=== PATIENT | female | born 1975 | race African-American/Black ===

== ENCOUNTER 2017-05-11 05:15 | Inpatient (IN) | payer OTHER ==
[2017-05-11] VITALS (7 sets, daily range): BP systolic 102–108; BP diastolic 65–78; PULSE 78–101; RESP 16–22; TEMP 97.2–99.4; O2SAT 97–100
[~2017-05-11] VITALS: Ht 147.3 cm; Wt 68.3 kg
[2017-05-11] MEDS ORDERED: ONDANSETRON HCL 4 MG/2 ML VIAL ONE (05:22)
[2017-05-11 05:36] LABS: AUTOMATED NEUTROPHIL # 3.5 TH/MM3 (1.8-7.7); BASOPHIL % 0.7 % (0.0-2.0); EOSINOPHIL % 0.2 % (0.0-4.0); I-STAT SODIUM 151 MMOL/L (138-146); LYMPH % 35.1 % (9.0-44.0); LYMPHOCYTE # 2.1 TH/MM3 (1.0-4.8); MEAN CELL VOLUME 96.9 FL (80.0-100.0); MEAN CORPUSCULAR HEMOGLOBIN 31.5 PG (27.0-34.0); MEAN CORPUSCULAR HGB CONC 32.6 % (32.0-36.0); MONO % 6.6 % (0.0-8.0); NEUT % 57.4 % (16.0-70.0); PLATELET COUNT 151 TH/MM3 (150-450); RED BLOOD COUNT 2.09 MIL/MM3 (4.00-5.30); RED CELL DISTRIBUTION WIDTH 13.5 % (11.6-17.2); WHITE BLOOD COUNT 6.1 TH/MM3 (4.0-11.0)
[2017-05-11 05:37] LABS: HEMO FLAGS AUTO DIFF
[2017-05-11 05:39] LABS: HEMATOCRIT 20.2 % (35.0-46.0)
[2017-05-11 05:40] LABS: I-STAT POTASSIUM LESS THAN 2.0 MMOL/L (3.5-4.9)
[2017-05-11] MEDS ORDERED: IOHEXOL 350 MG/ML 10 ML VIAL (for RAD DIAG) IV ONE (05:49)
[2017-05-11] MEDS: SODIUM CHLOR 0.9% 1000 ML INJ 1,000 ML IV SCH ×3 (05:50→19:49)
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
[2017-05-11 06:00] LABS: APTT (PATIENT) 32.4 SEC (24.3-30.1); INTERNATIONAL NORMALIZED RATIO 1.3 RATIO; PROTHROMBIN TIME - PATIENT 14.5 SEC (9.8-11.6)
[2017-05-11] MEDS ORDERED: SODIUM CHLORIDE 0.9% FLUSH 10 ML FLUSH IV FLUSH PRN (06:00)
[2017-05-11] MEDS ORDERED: Post-op Orders (for Pharmacy) MISC XX ONE (06:00)
[2017-05-11] MEDS ORDERED: NALOXONE HCL 0.4 MG/ML AMP IV PRN (06:00)
[2017-05-11] MEDS ORDERED: ONDANSETRON HCL 4 MG/2 ML VIAL IV PRN (06:00)
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
[2017-05-11 06:07] LABS: BETA HCG QUANT LESS THAN 1 MIU/ML (0-5)
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
[2017-05-11] MEDS: MORPHINE SULFATE 4 MG/ML INJ IV PRN ×7 (06:18→21:16)
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
[2017-05-11 07:05] LABS: PLATELET ESTIMATE SMEAR NORMAL (NORMAL); PLATELET MORPHOLOGY NORMAL (NORMAL); SCAN/DIFF AUTO DIFF CONFIRMED
[2017-05-11] MEDS: SODIUM CHLORIDE 0.9% FLUSH 10 ML FLUSH IV FLUSH SCH ×2 (08:00→19:48)
[2017-05-11] MEDS: PANTOPRAZOLE SOD 40 MG DELAYED RELEASE TAB PO SCH (09:20)
[2017-05-11] MEDS: oxyCODONE/ACETAMINOPHEN 5 MG/325 MG TAB PO PRN ×4 (09:59→23:46)
[2017-05-11] MEDS: DOCUSATE SODIUM 50 MG/SENNA 8.6 MG TAB PO SCH ×2 (11:15→19:48)
[2017-05-11 12:38] LABS: HEMATOCRIT 40.6 % (35.0-46.0); REVIEW FLAG FINAL
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
[2017-05-11] MEDS: MAGNESIUM HYDROXIDE SUSP 30 ML CUP PO SCH (19:48)
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
[2017-05-11] MEDS ORDERED: BACITRACIN TOP OINT 15 GM TUBE TOPICAL PRN (23:15)
[2017-05-12] MEDS: MORPHINE SULFATE 4 MG/ML INJ IV PRN ×8 (00:43→23:49)
[2017-05-12] MEDS: oxyCODONE/ACETAMINOPHEN 5 MG/325 MG TAB PO PRN ×5 (03:51→22:16)
[2017-05-12 04:08] VITALS: BP 111/64; PULSE 90; RESP 16; TEMP 97.8; O2SAT 97
[2017-05-12 05:07] LABS: AMPHETAMINE, URINE NEG (NEG); BARBITURATES, URINE NEG (NEG); COCAINE, URINE NEG (NEG)
[2017-05-12 05:19] LABS: BACTERIA, URINE RARE /hpf; BLOOD, URINE SMALL (NEG); COMMENT (UR) CATH-CULTURE IND; CULTURE IF INDICATED CATH CULTURE IND; GLUCOSE,URINE NEG (NEG); KETONE, URINE NEG (NEG); MUCUS URINE FEW /lpf (OCC); NITRITE,URINE NEG (NEG); SQUAMOUS EPITHELIAL CELL URINE <1 /hpf (0-5); URINE COLOR LIGHT-YELLOW (YELLW/STRAW)
[2017-05-12 06:21] LABS: AUTOMATED NEUTROPHIL # 6.5 TH/MM3 (1.8-7.7); BASOPHIL % 0.2 % (0.0-2.0); EOSINOPHIL # 0.1 TH/MM3 (0-0.4); EOSINOPHIL % 0.5 % (0.0-4.0); HEMATOCRIT 34.1 % (35.0-46.0); MEAN CORPUSCULAR HEMOGLOBIN 31.2 PG (27.0-34.0); MEAN CORPUSCULAR HGB CONC 34.2 % (32.0-36.0); MONO % 10.3 % (0.0-8.0); PLATELET COUNT 165 TH/MM3 (150-450); RED BLOOD COUNT 3.75 MIL/MM3 (4.00-5.30); RED CELL DISTRIBUTION WIDTH 15.9 % (11.6-17.2); WHITE BLOOD COUNT 9.6 TH/MM3 (4.0-11.0)
[2017-05-12 06:23] LABS: HEMO FLAGS AUTO DIFF
[2017-05-12 07:03] LABS: BICARBONATE 24.8 MEQ/L (21.0-32.0); CALCIUM-PROTEIN CORRECTED 7.9 MG/DL (8.5-10.1); MAGNESIUM 1.8 MG/DL (1.5-2.5); POTASSIUM 3.8 MEQ/L (3.5-5.1); TOTAL BILIRUBIN ADULT 0.6 MG/DL (0.2-1.0)
[2017-05-12] MEDS: PANTOPRAZOLE SOD 40 MG DELAYED RELEASE TAB PO SCH (07:52)
[2017-05-12] MEDS: DOCUSATE SODIUM 50 MG/SENNA 8.6 MG TAB PO SCH ×2 (07:52→21:22)
[2017-05-12] MEDS: LACTULOSE SYRUP 20 GM/30 ML CUP PO SCH (07:53)
[2017-05-12] MEDS: SODIUM CHLORIDE 0.9% FLUSH 10 ML FLUSH IV FLUSH SCH ×2 (07:56→21:30)
[2017-05-12] MEDS: SODIUM CHLOR 0.9% 1000 ML INJ 1,000 ML IV SCH ×2 (07:57→21:50)
[2017-05-12 08:00] VITALS: BP 109/72; PULSE 75; RESP 12; TEMP 96.1; O2SAT 98
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
[2017-05-12 09:24] LABS: SCAN/DIFF AUTO DIFF CONFIRMED
[2017-05-12 12:00] VITALS: BP 114/79; PULSE 81; RESP 16; TEMP 97.3; O2SAT 98
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
[2017-05-12] MEDS ORDERED: LIDOCAINE HCL 1% 50 ML VIAL INFIL SCH (14:45)
[2017-05-12] MEDS ORDERED: METOPROLOL TARTRATE 25 MG TAB PO PRN (15:45)
[2017-05-12] MEDS ORDERED: SODIUM CHLORID 0.9% 500 ML IV PRN (15:45)
[2017-05-12] MEDS ORDERED: CHLORHEXIDINE GLUCONATE 2 % 1 PACK (2 CLOTHS) TOPICAL PRN (15:45)
[2017-05-12] MEDS ORDERED: INSULIN HUMAN REGULAR 1,000 UNITS/10 ML VIAL SQ PRN (15:45)
[2017-05-12] MEDS ORDERED: POVIDONE IODINE 5% (ANTISEPSIS KIT) 4 APPLICATIONS EACH NARE PRN (15:45)
[2017-05-12] MEDS ORDERED: LACTATED RINGER'S 1000 ML IV PRN (15:45)
[2017-05-12 16:00] VITALS: BP 121/79; PULSE 82; RESP 16; TEMP 97; O2SAT 100
[2017-05-12 16:30] VITALS: BP 121/79; PULSE 82; RESP 16; TEMP 97; O2SAT 100
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
[2017-05-12] MEDS ORDERED: LIDOCAINE 1%/EPINEPHrine 1:100,000 SOLN 20 ML VIAL ONE (17:46)
[2017-05-12 20:45] VITALS: BP 120/72; PULSE 99; RESP 18; TEMP 97.7; O2SAT 100
[2017-05-12] MEDS: MAGNESIUM HYDROXIDE SUSP 30 ML CUP PO SCH (21:00)
[2017-05-13] VITALS (8 sets, daily range): BP systolic 104–120; BP diastolic 58–75; PULSE 75–93; RESP 16–18; TEMP 96.7–99.3; O2SAT 98–100
[2017-05-13] MEDS: MORPHINE SULFATE 4 MG/ML INJ IV PRN ×5 (01:48→20:10)
[2017-05-13] MEDS: oxyCODONE/ACETAMINOPHEN 5 MG/325 MG TAB PO PRN ×4 (02:35→21:51)
[2017-05-13] MEDS ORDERED: FAMOTIDINE 20 MG/2 ML VIAL ONE (07:17)
[2017-05-13] MEDS ORDERED: HYDROmorphone HCL PF 2 MG/ML VIAL ONE (07:17)
[2017-05-13] MEDS ORDERED: ACETAMINOPHEN 1000 MG/100 ML VIAL IV ONE (07:17)
[2017-05-13] MEDS ORDERED: MIDAZOLAM HCL 2 MG/2 ML VIAL ONE (07:17)
[2017-05-13] MEDS ORDERED: ceFAZolin INJ 1,000 MG VIAL ONE (07:23)
[2017-05-13] MEDS: SODIUM CHLOR 0.9% 1000 ML INJ 1,000 ML IV SCH (07:50)
[2017-05-13] MEDS ORDERED: ceFAZolin INJ 1,000 MG VIAL IV ONE (07:53)
[2017-05-13] MEDS ORDERED: BUPIVACAINE/EPINEPHRINE 0.5% PF 10 ML VIAL INFIL ONE (08:07)
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
[2017-05-13] MEDS ORDERED: SILVER SULFADIAZINE 1% CR 50 GM JAR EXTERNAL ONE (08:45)
[2017-05-13] MEDS: LACTULOSE SYRUP 20 GM/30 ML CUP PO SCH (09:00)
[2017-05-13] MEDS: SILVER SULFADIAZINE 1% CR 50 GM JAR TOP SCH (09:00)
[2017-05-13] MEDS: DOCUSATE SODIUM 50 MG/SENNA 8.6 MG TAB PO SCH ×2 (09:00→20:11)
[2017-05-13] MEDS: PANTOPRAZOLE SOD 40 MG DELAYED RELEASE TAB PO SCH (09:00)
[2017-05-13] MEDS: SODIUM CHLORIDE 0.9% FLUSH 10 ML FLUSH IV FLUSH SCH ×2 (09:00→20:12)
[2017-05-13] MEDS ORDERED: DO NOT ADM ANY ANTICOAGULANT DRUGS PRN (11:00)
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
--- NOTE | 2017-05-13 11:31 | HHI.PR ---
Immediate Post Op Note Procedure Date: May 13, 2017 Pre Op Diagnosis: (1) Laceration of forehead (2) Laceration of arm, left, multiple sites Post Op Diagnosis: Surgeon: Jennifer Jennings MD Assembly Machine Offbearer(s): Carmel Nielsen PA-C Procedure: Debridement of wounds of left upper extremity and left forehead with repair of lacerations. Complications: n/a Specimen(s) removed: n/a Estimated blood loss: 15mL Anesthesia: General Drains: None Tourniquet time (min at mmHg) n/a Patient to: PACU Patient Condition: Good Date/Time of Procedure: SEE SURGICAL CARE RECORD Germania Nielsen May 13, 2017 11:31
[2017-05-13] MEDS ORDERED: LACTATED RINGER'S 1000 ML INJ 1,000 ML IV ONE (12:00)
[2017-05-13] MEDS ORDERED: NEOSTIGMINE 3 MG/3 ML SYR IV ONE (12:00)
[2017-05-13] MEDS ORDERED: ONDANSETRON HCL 4 MG/2 ML VIAL IV PUSH ONE (12:00)
[2017-05-13] MEDS ORDERED: PROPOFOL 200 MG/20 ML AMP IV ONE (12:00)
[2017-05-13 14:38] LABS: AUTOMATED NEUTROPHIL # 7.5 TH/MM3 (1.8-7.7); BASOPHIL % 0.1 % (0.0-2.0); HEMATOCRIT 35.7 % (35.0-46.0); HEMO FLAGS DIFF FINAL; LYMPH % 3.6 % (9.0-44.0); LYMPHOCYTE # 0.3 TH/MM3 (1.0-4.8); MEAN CELL VOLUME 90.7 FL (80.0-100.0); MEAN CORPUSCULAR HEMOGLOBIN 30.6 PG (27.0-34.0); MEAN CORPUSCULAR HGB CONC 33.7 % (32.0-36.0); NEUT % 92.3 % (16.0-70.0); PLATELET COUNT 152 TH/MM3 (150-450); RED BLOOD COUNT 3.93 MIL/MM3 (4.00-5.30); RED CELL DISTRIBUTION WIDTH 15.2 % (11.6-17.2); WHITE BLOOD COUNT 8.1 TH/MM3 (4.0-11.0)
[2017-05-13] MEDS ORDERED: MAGN400S PO (14:49)
[2017-05-13] MEDS ORDERED: WALKER WHEELS/F1 MIS (14:49)
[2017-05-13] MEDS ORDERED: SENN1TAB PO (14:49)
[2017-05-13 15:03] LABS: ANION GAP 6 MEQ/L (5-15); AST (GOT) 45 U/L (15-37); BLOOD UREA NITROGEN 3 MG/DL (7-18); CHLORIDE 109 MEQ/L (98-107); GLOMERULAR FILTRATION RATE 162 ML/MIN (>89); SODIUM (NA) 145 MEQ/L (136-145)
[2017-05-13 15:05] LABS: ALKALINE PHOSPHATASE 59 U/L (45-117); ALT (GPT) 54 U/L (10-53); TOTAL BILIRUBIN ADULT 0.4 MG/DL (0.2-1.0)
[2017-05-13] MEDS: LIDOCAINE HCL 5% PATCH T-DERMAL SCH (15:19)
[2017-05-13] MEDS: KETOROLAC TROMETHAMINE 30 MG/ML (IVP) VIAL IV PUSH SCH ×2 (15:19→23:39)
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
[2017-05-13] MEDS: MAGNESIUM HYDROXIDE SUSP 30 ML CUP PO SCH (20:11)
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
[2017-05-14] VITALS (7 sets, daily range): BP systolic 94–130; BP diastolic 56–83; PULSE 75–98; RESP 15–19; TEMP 98.1–98.8; O2SAT 95–100
[2017-05-14] MEDS: oxyCODONE/ACETAMINOPHEN 5 MG/325 MG TAB PO PRN ×5 (03:45→20:21)
[2017-05-14] MEDS: KETOROLAC TROMETHAMINE 30 MG/ML (IVP) VIAL IV PUSH SCH ×4 (04:52→23:50)
[2017-05-14] MEDS ORDERED: BISACODYL EC 5 MG TABEC PO ONE (08:00)
[2017-05-14] MEDS ORDERED: BISACODYL 10 MG SUPP RECTAL ONE (08:00)
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
[2017-05-14] MEDS: LACTULOSE SYRUP 20 GM/30 ML CUP PO SCH (09:00)
[2017-05-14] MEDS: SILVER SULFADIAZINE 1% CR 50 GM JAR TOP SCH (09:00)
[2017-05-14] MEDS: SODIUM CHLORIDE 0.9% FLUSH 10 ML FLUSH IV FLUSH SCH ×2 (09:00→20:20)
[2017-05-14] MEDS: DOCUSATE SODIUM 50 MG/SENNA 8.6 MG TAB PO SCH ×2 (09:00→20:22)
[2017-05-14] MEDS: LIDOCAINE HCL 5% PATCH T-DERMAL SCH (10:44)
[2017-05-14] MEDS: PANTOPRAZOLE SOD 40 MG DELAYED RELEASE TAB PO SCH (10:45)
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
[2017-05-14] MEDS: MORPHINE SULFATE 4 MG/ML INJ IV PRN ×2 (13:19→22:10)
--- NOTE | 2017-05-14 14:59 | RADRPT ---
EXAM DATE/TIME: 05/14/2017 14:21 [facility] COMPARISON: CT ABDOMEN & PELVIS W CONTRAST, May 11, 2017, 5:46. INDICATIONS : Follow up pelvic fracture. MEDICAL HISTORY : None. SURGICAL HISTORY : None. ENCOUNTER: Subsequent ACUITY: 4 - 6 days PAIN SCORE: 5/10 LOCATION: Left pelvis FINDINGS: There is a mildly displaced fracture through the left pubic bone extending into the superior pubic ra mus as well as the inferior pubic ramus. There is also a relatively nondisplaced left sacral bone fra cture. CONCLUSION: 1. Mildly displaced fractures of the left pubic bone and superior pubic ramus, inferior pubic ramus a nd left sacral bone. Davide Valladares MD on May 14, 2017 at 14:55 Board Certified Radiologist. This report was verified electronically.
[2017-05-14] MEDS: ENOXAPARIN SODIUM 30 MG/0.3 ML SYRINGE SQ SCH (15:47)
[2017-05-14] MEDS ORDERED: XARE10TA PO (16:18)
[2017-05-14] MEDS: MAGNESIUM HYDROXIDE SUSP 30 ML CUP PO SCH (20:23)
[2017-05-15] VITALS (7 sets, daily range): BP systolic 105–124; BP diastolic 57–71; PULSE 78–100; RESP 15–22; TEMP 96.9–99; O2SAT 95–100
[2017-05-15] MEDS: MORPHINE SULFATE 4 MG/ML INJ IV PRN ×2 (03:55→08:54)
[2017-05-15] MEDS: ENOXAPARIN SODIUM 30 MG/0.3 ML SYRINGE SQ SCH ×2 (03:56→15:00)
[2017-05-15] MEDS: KETOROLAC TROMETHAMINE 30 MG/ML (IVP) VIAL IV PUSH SCH ×3 (06:14→17:28)
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
[2017-05-15] MEDS ORDERED: MAGNESIUM CITRATE SOLN 300 ML BTL PO ONE (08:30)
[2017-05-15] MEDS: LIDOCAINE HCL 5% PATCH T-DERMAL SCH (08:53)
[2017-05-15] MEDS: SODIUM CHLORIDE 0.9% FLUSH 10 ML FLUSH IV FLUSH SCH ×2 (09:00→21:39)
[2017-05-15] MEDS: PANTOPRAZOLE SOD 40 MG DELAYED RELEASE TAB PO SCH (09:00)
[2017-05-15] MEDS: DOCUSATE SODIUM 50 MG/SENNA 8.6 MG TAB PO SCH ×2 (09:00→21:39)
[2017-05-15] MEDS: LACTULOSE SYRUP 20 GM/30 ML CUP PO SCH (09:00)
[2017-05-15] MEDS: SILVER SULFADIAZINE 1% CR 50 GM JAR TOP SCH (09:10)
--- NOTE | 2017-05-15 09:57 | PD.PLAS.PN ---
Subjective Remarks Patient is 2 days status post debridement and repair of wounds of the left arm and forehead. DOS 05/12/17. Patient states that she is feeling better today and that her forehead looks good. Objective Vital Signs Date Time Temp Pulse Resp B/P Pulse Ox O2 Delivery O2 Flow Rate FiO2 05/15/17 08:07 98.6 80 20 108/64 100 05/15/17 07:14 18 05/15/17 04:12 18 05/15/17 04:00 98.0 90 16 105/63 98 05/15/17 00:31 96.9 78 15 124/71 100 05/15/17 00:00 Room Air 05/14/17 21:43 18 05/14/17 20:54 98 Nasal Cannula 1.00 05/14/17 19:00 98.1 98 15 94/56 98 05/14/17 16:00 98.1 75 18 117/77 99 05/14/17 13:21 95 1.00 05/14/17 12:00 98.4 83 18 121/83 100 I/O 05/14/17 05/14/17 05/14/17 05/15/17 05/15/17 05/15/17 07:00 15:00 23:00 07:00 15:00 23:00 Intake Total 250 ml 650 ml 480 ml 300 ml Output Total 350 ml Balance -100 ml 650 ml 480 ml 300 ml Intake Oral 250 ml 650 ml 480 ml 300 ml Output Urine Total 350 ml # Voids 3 3 1 # Bowel Movements 0 0 0 0 Date/Time Procedure Status Source Growth 05/12/17 04:00 Urine Culture - Final Complete Urine Catheterized Urine NO GROWTH IN 48 HOURS. Result Diagram: 05/13/17 1428 05/13/17 1428 Exam Findings Wound of the forehead is healing well. Sutures are in place. There is no oozing, erythema, swelling, induration or other indication of infection. Dressing is in place to the left arm. Wounds are healing well. Swelling is improved. There is no evidence of infection. Sutures are in place. Assessment and Plan Diagnosis: (1) Laceration of arm, left, multiple sites (2) Laceration of forehead Assessment and Plan Wounds are healing well. Daily dressing changes are ordered for the left arm and discussed with RN. Patient is advised that we will continue with wound care and further surgery for skin grafting may be required. Also discussed wound care for forehead wound including application of povidone iodine ointment daily. She is cleared for discharge from hand surgery standpoint with dressing changes and follow up in office. Germania Nielsen May 15, 2017 09:56
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
[2017-05-15] MEDS: oxyCODONE/ACETAMINOPHEN 5 MG/325 MG TAB PO PRN (12:47)
[2017-05-15] MEDS: POVIDONE IODINE 10% OINT 30 GM TUBE TOPICAL SCH (13:00)
[2017-05-15] MEDS ORDERED: LIDO5DIS5 T-DERMAL (13:46)
[2017-05-15] MEDS ORDERED: ENOX30P SQ (13:46)
[2017-05-15] MEDS ORDERED: PANT40TA3 PO (13:46)
[2017-05-15] MEDS ORDERED: KETO30IN3 IV PUSH (15:11)
[2017-05-15] MEDS ORDERED: OXYC1TAB63 PO (15:11)
[2017-05-15] MEDS ORDERED: POVI10OI TOPICAL (15:17)
[2017-05-15] MEDS ORDERED: SSD1CRE TOP (15:17)
[2017-05-15] MEDS: oxyCODONE/ACETAMINOPHEN 10 MG/325 MG TAB PO PRN ×2 (17:27→22:56)
[2017-05-15] MEDS: MAGNESIUM HYDROXIDE SUSP 30 ML CUP PO SCH (21:00)
[2017-05-16] VITALS: BP 118/69; PULSE 72; RESP 24; TEMP 97; O2SAT 99
[2017-05-16] MEDS: KETOROLAC TROMETHAMINE 30 MG/ML (IVP) VIAL IV PUSH SCH ×3 (01:44→11:16)
[2017-05-16] MEDS: ENOXAPARIN SODIUM 30 MG/0.3 ML SYRINGE SQ SCH (03:57)
[2017-05-16] MEDS: oxyCODONE/ACETAMINOPHEN 10 MG/325 MG TAB PO PRN ×3 (03:58→12:36)
[2017-05-16 04:00] VITALS: BP 121/72; PULSE 78; RESP 18; TEMP 96.6; O2SAT 100
[2017-05-16 08:00] VITALS: BP 110/75; PULSE 78; RESP 16; TEMP 98; O2SAT 98
[2017-05-16] MEDS: LIDOCAINE HCL 5% PATCH T-DERMAL SCH (08:48)
[2017-05-16] MEDS: SILVER SULFADIAZINE 1% CR 50 GM JAR TOP SCH (08:49)
[2017-05-16] MEDS: LACTULOSE SYRUP 20 GM/30 ML CUP PO SCH ×2 (08:49→11:15)
[2017-05-16] MEDS: DOCUSATE SODIUM 50 MG/SENNA 8.6 MG TAB PO SCH ×2 (08:49→11:14)
[2017-05-16] MEDS: SODIUM CHLORIDE 0.9% FLUSH 10 ML FLUSH IV FLUSH SCH (08:49)
[2017-05-16] MEDS: POVIDONE IODINE 10% OINT 30 GM TUBE TOPICAL SCH (08:50)
[2017-05-16 12:00] VITALS: BP 111/67; PULSE 85; RESP 16; TEMP 98.6; O2SAT 100
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
[2017-05-19] MEDS ORDERED: GETGO ROLLING W1 MI1 (14:22)
[2017-05-19] MEDS ORDERED: COMMODE 3-IN-11 MIS (14:35)
[2017-05-19] MEDS ORDERED: WHEEMIS3 (14:35)
== END 2017-05-16 13:48 | DRG 964 ==
LOC: NEPI 05:15 → MERGE 06:01 → NEDA 06:01 → EDBD 06:01 → N03B 06:08 → N06A 12:33
PROVIDERS: ADMIT Surgery; ATTEND Surgery
PROC: 0HQCXZZ Repair Left Upper Arm Skin, External Approach (ICD-10-PCS; 2017-05-13)
PROC: 0HQ1XZZ Repair Face Skin, External Approach (ICD-10-PCS; principal; 2017-05-13 07:25)
DX: S32.592A Other specified fracture of left pubis, initial encounter for closed fracture (principal); S36.114A Minor laceration of liver, initial encounter; S32.018A Other fracture of first lumbar vertebra, initial encounter for closed fracture; S06.9X9A Unspecified intracranial injury with loss of consciousness of unspecified duration, initial encounter; S32.10XA Unspecified fracture of sacrum, initial encounter for closed fracture; S06.0X9A Concussion with loss of consciousness of unspecified duration, initial encounter; S41.112A Laceration without foreign body of left upper arm, initial encounter; S01.81XA Laceration without foreign body of other part of head, initial encounter; V44.5XXA Car driver injured in collision with heavy transport vehicle or bus in traffic accident, initial encounter; Y92.410 Unspecified street and highway as the place of occurrence of the external cause
CPT/HCPCS: 36430; 70450; 70486; 71010; 71260; 72125; 72128; 72131; 72170; 72190; 73060; 73070; 73560; 74177; 80053; 80307; 81001; 82435; 82565; 82947; 83735; 84100; 84132; 84295; 84520; 84702; 85014; 85018; 85025; 85384; 85610; 85730; 86850; 86900; 86901; 86920; 87086; 87641; 94150; J0131; J0690; J1170; J1650; J1885; J2250; J2270; J2405; J2710; J3010; J7030; J7120; L0150; P9016; Q9967

== ENCOUNTER 2018-01-09 23:42 | Emergency (ER) | payer SELFPAY ==
[~2018-01-09] VITALS: Ht 147.3 cm; Wt 55.0 kg
[~2018-01-09 23:42] MED LIST: COMMODE 3-IN-11 MIS; CYCL10TA PO; GETGO ROLLING W1 MI1; PANT40TA3 PO; SENN1TAB PO; SSD1CRE TOPICAL; TRAM50TA PO; WALKER WHEELS/F1 MIS; WHEEMIS3
[2018-01-09 23:50] VITALS: BP 111/77; PULSE 74; RESP 16; TEMP 97.9; O2SAT 100
[2018-01-10] MEDS ORDERED: LIDOCAINE HCL 1% 50 ML VIAL IM ONE (00:15)
[2018-01-10] MEDS ORDERED: cefTRIAXone 250 MG VIAL IM ONE (00:15)
[2018-01-10] MEDS ORDERED: AZITHROMYCIN PWD FOR SUSP 1 GM PACKET PO ONE (00:15)
--- NOTE | 2018-01-10 00:16 | PD ---
HPI Chief Complaint: Rechecker Problem/Complaint Time Seen by Provider: 23:59 Travel History International Travel<30 days: No Contact w/Intl Traveler<30days: No Traveled to known affect area: No History of Present Illness HPI 42-year-old black female presents emergency department with a 2 day history of vaginal discharge, and lower pelvic cramping. She denies . She denies sexual activity now for 6 months. She also reports a headache. Moderate in intensity. No recent fever chills. No nausea vomiting. No upper abdominal pain. Patient denies any dysuria, frequency, urgency. 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 ) Respiratory: No Immunizations Current: Yes Radiation Therapy: No Sickle Cell Disease: No Thyroid Disease: No Tetanus Vaccination: < 5 Years ?: Not LMP: 12/16/17 : 5 Para: 4 Miscarriage: 1 : 0 Past Surgical History AICD: No Arteriovenous Shunt: No Gynecologic Surgery: Yes (ECTOPIC ) Insulin Pump: No Joint Replacement: No Pacemaker: No Other Surgery: Yes (TUBAL ) Social History Alcohol Use: No Tobacco Use: No Substance Use: No Allergies-Medications (Allergen,Severity, Reaction): Coded Allergies: No Known Allergies (Unverified Adverse Reaction, Unknown, 01/09/18) Reported Meds & Prescriptions Reported Meds & Active Scripts Active Review of Systems Except as stated in HPI: all other systems reviewed are Neg Physical Exam Narrative GENERAL: Well-developed, well-nourished in no acute distress. Nontoxic appearing. HEAD: Normocephalic, atraumatic. EYES: Pupils equal round and reactive. Extraocular motions intact. No scleral icterus. No injection or drainage. ENT: TMs clear without erythema. The external auditory canals clear. Nose: clear . Posterior pharynx is pink and moist. No tonsillar edema or exudate. Uvula midline. Airway patent. NECK: Trachea midline.Supple, nontender, moves head freely. No central bony tenderness or spasm. CARDIOVASCULAR: Regular rate and rhythm without murmurs, gallops, or rubs. RESPIRATORY: Clear to auscultation. Breath sounds equal bilaterally. No wheezes , rales, or rhonchi. GASTROINTESTINAL: Abdomen soft, non-tender, nondistended. No hepato-splenomegaly , or palpable masses. No guarding. EXTREMITIES: No clubbing, cyanosis, or edema. No joint tenderness, effusion, or edema noted. BACK: Nontender without deformity or crepitance. No flank tenderness. Data Data Last Documented VS Vital Signs Date Time Temp Pulse Resp B/P (MAP) Pulse Ox O2 Delivery O2 Flow Rate FiO2 01/09/18 23:50 97.9 74 16 111/77 (88) 100 Room Air Orders Orders Gc And Chlamydia Pcr (01/10/18 00:03) Wet Prep Profile (01/10/18 00:03) Urinalysis - C+S If Indicated (01/10/18 00:03) Azithromycin Powd Pack (Zithromax Powd P (01/10/18 00:15) Ceftriaxone Inj (Rocephin Inj) (01/10/18 00:15) Lidocaine 1% Inj (50 Ml) (Xylocaine 1% I (01/10/18 00:15) Ed Urine Pregnancytest Poc (01/10/18 00:03) [facility] Medical Decision Making Medical Screen Exam Complete: Yes Emergency Medical Condition: Yes Medical Record Reviewed: Yes Differential Diagnosis Differential diagnosis: STD, vaginitis, , UTI Narrative Course Patient is given 1 g of Zithromax p.o. and Rocephin 250 mg IM. Procedures Procedure Narrative The nurses present during the exam. GENITOURINARY: Normal external genitalia without lesions or erythema. Vaginal vault without blood positive beige drainage. Cervical os was closed without drainage. No cervical motion tenderness. Uterus nontender and nonenlarged. Bilateral adnexa nontender without masses. Patient Instructions: General Instructions Med/Other Pt SpecificInfo: Prescription(s) given Condition: Stable Davide Lima Jan 10, 2018 00:16
[2018-01-10 01:20] LABS: BILIRUBIN, URINE NEG (NEG); BLOOD, URINE MOD (NEG); GLUCOSE,URINE NEG (NEG); KETONE, URINE 10 mg/dL (NEG); MUCUS URINE FEW /lpf (OCC); NITRITE,URINE NEG (NEG); SQUAMOUS EPITHELIAL CELL URINE 1 /hpf (0-5); URINE COLOR YELLOW (YELLW/STRAW); URINE LEUKOCYTE ESTERASE MOD (NEG)
[2018-01-10] MEDS ORDERED: METR-1 PO (01:26)
[2018-01-10] MEDS ORDERED: metroNIDAZOLE 500 MG TAB PO ONE (01:30)
== END 2018-01-10 01:53 | disposition home or self-care (01) ==
LOC: NEPD 23:42
DX: N73.9 Female pelvic inflammatory disease, unspecified (principal); A59.9 Trichomoniasis, unspecified; R51 Headache; D57.3 Sickle-cell trait; N85.8 Other specified noninflammatory disorders of uterus
CPT/HCPCS: 81001; 84703; 87210; 87491; 87591; 96372; 99284; J0696